=== PATIENT | female | born 1960 | race Caucasian/White ===

== ENCOUNTER → 2017-03-29 | Outpatient (CLI) | payer OTHER ==
[~2017-03-29] MED LIST: ASCO500T8 PO; CHOL200024 PO; ESTR1PAT65 TD; HYDR25TA6 PO; IBUP-1223 PO; LISI5TAB7 PO; LYSI500T PO
== END | disposition home or self-care (01) ==
LOC: RAD 13:33
PROVIDERS: ATTEND Nurse Practitioner Family
DX: Z01.812 Encounter for preprocedural laboratory examination (principal); R93.2 Abnormal findings on diagnostic imaging of liver and biliary tract
CPT/HCPCS: 71020